=== PATIENT | female | born 1965 | race Caucasian/White ===

== ENCOUNTER 2016-05-14 15:09 | Outpatient (CLI) | payer MEDICAID | END 2016-05-14 15:10 | disposition home or self-care (01) | DX: J44.1 Chronic obstructive pulmonary disease with (acute) exacerbation (principal) ==

== ENCOUNTER 2016-07-08 11:17 | Outpatient (CLI) | payer MEDICAID | END 2016-07-08 11:18 | disposition home or self-care (01) | DX: G47.30 Sleep apnea, unspecified (principal); G47.8 Other sleep disorders; G47.10 Hypersomnia, unspecified; G47.00 Insomnia, unspecified; R06.83 Snoring ==

== ENCOUNTER 2016-07-12 19:39 | Outpatient (CLI) | payer MEDICAID | END 2016-07-12 19:40 | disposition home or self-care (01) | DX: G47.31 Primary central sleep apnea (principal); R09.02 Hypoxemia ==

== ENCOUNTER 2016-07-21 14:39 | Outpatient (CLI) | payer MEDICAID | END 2016-07-21 14:40 | disposition home or self-care (01) | DX: G47.31 Primary central sleep apnea (principal) ==

== ENCOUNTER 2016-08-12 19:28 | Outpatient (CLI) | payer MEDICAID | END 2016-08-12 19:29 | disposition home or self-care (01) | DX: G47.31 Primary central sleep apnea (principal); G47.61 Periodic limb movement disorder ==

== ENCOUNTER 2016-08-26 13:52 | Outpatient (CLI) | payer MEDICAID | END 2016-08-26 13:53 | disposition home or self-care (01) | DX: G47.31 Primary central sleep apnea (principal) ==

== ENCOUNTER 2016-09-05 11:58 | Outpatient (CLI) | payer MEDICAID | END 2016-09-05 11:59 | disposition home or self-care (01) | DX: Z12.11 Encounter for screening for malignant neoplasm of colon (principal); Z78.9 Other specified health status ==

== ENCOUNTER 2016-10-16 10:52 | Outpatient (CLI) | payer MEDICAID | END 2016-10-16 10:53 | disposition home or self-care (01) | LOC: SC 10:52 | PROVIDERS: ATTEND Nurse Practitioner Family | DX: G47.31 Primary central sleep apnea (principal) | CPT/HCPCS: 99212; 99215 ==

== ENCOUNTER 2016-11-17 15:46 | Outpatient (CLI) | payer MEDICAID ==
--- NOTE | 2016-11-19 13:02 | XRAY Report ---
LUMBAR SPINE WITH AP, LATERAL, OBLIQUES, CONED-DOWN LATERAL VIEW OF L5-S1, AND FLEXION EXTENSION LATE RAL VIEW: 11/17/2016 CLINICAL HISTORY: COMPARISON: 01/05/2016 FINDINGS: Minimal vascular calcification is noted in the abdominal aorta and its iliac branches. Five nonrib-bearing lumbar-type vertebrae are noted. Severe dextroscoliosis of the upper half of the lumbar spine and minimal levoscoliosis in the lower half of the lumbar spine. Compression fracture of moderate degree is noted of L2 with loss of 50% of anterior height of the vertebrae and 30% of the posterior height. No change in this compression fracture is seen as compared to 01/11/2016 exam. M oderate degree of disk space narrowing is noted at the L2-3 level. Mild anterior spurring is noted o f L2. In association with the scoliosis is exaggerated lumbar lordosis. Facet joints so no signific ant abnormality. SI joints demonstrate moderate degree of narrowing of the inferior aspect of the le ft SI joint. Mild narrowing is noted of the facet joints in the lower lumbar spine. Excellent mobil ity in flexion/extension views was seen in the lumbar spine. IMPRESSION: 1. NO SIGNIFICANT CHANGE IS NOTED COMPARED TO 01/05/2016 WITH MILD DEXTROSCOLIOSIS OF THE UPPER H GROUP HOME OF THE LUMBAR SPINE AND A MODERATE DEGREE OF LEVOSCOLIOSIS IN THE LOWER HALF OF THE LUMBAR SPINE. 2. OLD COMPRESSION FRACTURE OF MODERATE DEGREE IS NOTED AT L2, UNCHANGED COMPARED TO PRECEDING EX AM DATED 01/04/2017. MODERATE DEGREE OF DISC SPACE NARROWING IS ALSO NOTED AT THE L2-3 LEVEL, NOT SI GNIFICANTLY CHANGED. 3. MILD OSTEOARTHRITIS IS NOTED IN THE INFERIOR HALF OF THE SI JOINTS. JOB #: [id number] EXT JOB #:[id number]
== END 2016-11-17 15:47 | disposition home or self-care (01) ==
LOC: DI 15:46
PROVIDERS: ATTEND Anesthesiology Pain Medicine
DX: M47.897 Other spondylosis, lumbosacral region (principal); M41.86 Other forms of scoliosis, lumbar region
CPT/HCPCS: 72114

== ENCOUNTER 2016-12-09 13:12 | Outpatient (CLI) | payer MEDICAID | END 2016-12-09 13:13 | disposition home or self-care (01) | LOC: SC 13:12 | PROVIDERS: ATTEND Nurse Practitioner Family | DX: G47.31 Primary central sleep apnea (principal) | CPT/HCPCS: 99212; 99214 ==